=== PATIENT | female | born 1935 | race Two or more races ===

== ENCOUNTER 2017-06-21 14:08 | Emergency (ER) | payer OTHER ==
--- NOTE | 2017-06-21 15:36 | CPEKG ---
Heart Rate: 56 RR Interval: 1071 P-R Interval: 184 QRSD Interval: 78 QT Interval: 424 QTC Interval: 410 P [place]: 33 QRS [place]: -17 T Wave [place]: 7 EKG Severity - ABNORMAL ECG - EKG Impression: SINUS RHYTHM EKG Impression: CONSIDER LEFT VENTRICULAR HYPERTROPHY Electronically Signed By: Maxim Martinez 21-Jun-2017 16:07:34
[2017-06-21] MEDS ORDERED: NS 1,000 ML IV ONE (15:55)
--- NOTE | 2017-06-21 16:04 | EDPHY ---
H & P Time Seen by Provider: 06/21/17 15:17 HPI/ROS: Chief complaint. Cough HPI. 82-year-old female with exposure to influenza in her . She was seen 4 days ago and prescribed Tamiflu 1 pill daily for 10 days. However she has down developed symptoms of cough, achiness, fever for the past 5 days. Apparently no fever since yesterday. This morning she had a coughing episode with some nausea. However no shortness of breath or chest discomfort. Cough is nonproductive. Patient has a history of hypertension and the daughter has noticed that gradually over the past several months the up for number has become more elevated her blood pressure. No headache. No abdominal pain vomiting or diarrhea. Patient is using Tessalon Perles for cough but with minimal relief ROS Constitutional. Fever and chills Eyes. no problems with vision ENT. no sore throat, no nasal drainage Cardiovascular. no chest pain Respiratory. No shortness of breath but cough Abdominal. No abdominal pain but nausea this morning . no problems urinating MS. no calf pain/swelling, no neck/back pain, no joint pain Skin. no rash Lymph. no swollen glands Neuro. no headache, no dizziness, no difficulty walking or with speech Past Medical/Surgical History: Hypertension, diabetes, cholecystectomy Social History: , nonsmoker, no alcohol Smoking Status: Never smoked Physical Exam: General Appearance: Alert well-developed female mild distress vital signs are stable Eyes: Pupils equal and round no pallor or injection. ENT, pharynx without injection. Mucous membranes are moist Respiratory: There are no retractions, lungs are clear to auscultation. Cardiovascular: Regular rate and rhythm. Gastrointestinal: Abdomen is soft and nontender, no masses, bowel sounds normal. Neurological: Awake and alert, sensory and motor exams grossly normal. Skin: Warm and dry, no rashes. Musculoskeletal: Neck is supple nontender. Extremities symmetrical, full range of motion. Psychiatric: Patient is oriented X 3, there is no agitation. Constitutional: Initial Vital Signs Temperature (C) 37 C 06/21/17 14:18 Heart Rate 59 L 06/21/17 14:18 Respiratory Rate 20 06/21/17 14:18 Blood Pressure 174/75 H 06/21/17 14:18 O2 Sat (%) 98 06/21/17 14:18 O2 Delivery Mode Room Air Allergies/Adverse Reactions: htn Allergy (Uncoded 06/21/17 14:16) Home Medications: Medication Instructions Recorded DIOVAN 07/10/10 Metformin HCl 04/29/14 Valsartan 04/29/14 Metoprolol Succinate 06/21/17 Oseltamivir Phosphate [Tamiflu 75 75 mg PO BID #5 cap 06/21/17 mg (*)] Medical Decision Making - Diagnostics EKG Interpretation: EKG interpreted by me shows normal sinus rhythm normal interval. There is left axis deviation. QRS otherwise normal there is no significant ST elevation or depression. No arrhythmia. The rate is 56 Imaging Results: Imaging Impressions Chest X-Ray 06/21/17 15:55 Impression: 1. Stable mild cardiomegaly. 2. Stable mildly hyperexpanded lungs suggestive of underlying mild COPD. 3. Fibrotic streaks suspected at the left base involving the lingula. 4. Soft tissue density right side of the trachea causing deviation of the trachea toward the left. Chest x-ray reviewed by me shows no evidence of pneumonia. There is slight deviation of the trachea to the left from a soft tissue density at the level of the clavicle Procedures: IV normal saline ED Course/Re-evaluation: Re-evaluation 5:15 p.m. Differential Diagnosis: I considered influenza, pneumonia. She has been exposed to influenza and was on prophylaxis but now has what appears to be influenza type illness. There is no evidence for pneumonia. She is otherwise stable. No evidence for sepsis. - Data Points Laboratory Results: Laboratory Results 06/21/17 16:25 06/21/17 16:25 06/21/17 06/21/17 16:25 16:25 WBC 5.60 10^3/uL 10^3/uL (3.80-9.50) RBC 4.22 10^6/uL 10^6/uL (4.18-5.33) Hgb 12.8 g/dL g/dL (12.6-16.3) Hct 36.0 % L % (38.0-47.0) MCV 85.3 fL fL (81.5-99.8) MCH 30.3 pg pg (27.9-34.1) MCHC 35.6 g/dL g/dL (32.4-36.7) RDW 11.9 % % (11.5-15.2) Plt Count 280 10^3/uL 10^3/uL (150-400) MPV 8.8 fL fL (8.7-11.7) Neut % (Auto) 43.0 % % (39.3-74.2) Lymph % (Auto) 49.3 % H % (15.0-45.0) [place] % (Auto) 5.5 % % (4.5-13.0) Eos % (Auto) 1.3 % % (0.6-7.6) Baso % (Auto) 0.7 % % (0.3-1.7) Nucleat RBC Rel Count 0.0 % % (0.0-0.2) Absolute Neuts (auto) 2.41 10^3/uL 10^3/uL (1.70-6.50) Absolute Lymphs (auto) 2.76 10^3/uL 10^3/uL (1.00-3.00) Absolute Monos (auto) 0.31 10^3/uL 10^3/uL (0.30-0.80) Absolute Eos (auto) 0.07 10^3/uL 10^3/uL (0.03-0.40) Absolute Basos (auto) 0.04 10^3/uL 10^3/uL (0.02-0.10) Absolute Nucleated RBC 0.00 10^3/uL 10^3/uL (0-0.01) Immature Gran % 0.2 % % (0.0-1.1) Immature Gran # 0.01 10^3/uL 10^3/uL (0.00-0.10) Sodium 134 mEq/L L mEq/L (135-145) Potassium 4.7 mEq/L mEq/L (3.5-5.2) Chloride 97 mEq/L mEq/L (97-110) Carbon Dioxide 24 mEq/l mEq/l (22-31) Anion Gap 13 mEq/L mEq/L (8-16) BUN 9 mg/dL mg/dL (7-23) Creatinine 0.7 mg/dL mg/dL (0.6-1.0) Estimated GFR > 60 Glucose 102 mg/dL H mg/dL (70-100) Calcium 8.9 mg/dL mg/dL (8.5-10.4) Medications Given: Discontinued Medications Sodium Chloride (Ns) 1,000 mls @ 0 mls/hr IV ONCE ONE; Wide Open PRN Reason: Protocol Stop: 06/21/17 15:56 Last Admin: 06/21/17 16:28 Dose: 1,000 mls Departure - Departure Disposition: Home, Routine, Self-Care Clinical Impression: Influenza Condition: Good Instructions: Influenza (ED) Additional Instructions: Drink plenty of fluids and stay hydrated. Continue regular medications. Increase Tamiflu to 1 pill twice daily for the next 5 days. Return for worsening symptoms. Keep follow-up appointment on June 26 to also have blood pressure rechecked. Referrals: Gayatri Armas MD [Primary Care Provider] - 06/26/17 Prescriptions: Oseltamivir Phosphate [Tamiflu 75 mg (*)] 75 mg PO BID #5 cap
[2017-06-21 16:48] LABS: PLATELET COUNT 280 10^3/uL (150-400)
[2017-06-21 17:17] VITALS: RESP 16
[2017-06-21 17:47] VITALS: BP 170/69; PULSE 57; TEMP 98.6; O2SAT 99
== END 2017-06-21 17:45 | disposition home or self-care (01) ==
DX: J11.1 Influenza due to unidentified influenza virus with other respiratory manifestations (principal); E86.9 Volume depletion, unspecified; I10 Essential (primary) hypertension; E11.9 Type 2 diabetes mellitus without complications; Z79.84 Long term (current) use of oral hypoglycemic drugs

== ENCOUNTER 2018-05-26 17:42 | Observation (INO) | payer OTHER ==
--- NOTE | 2018-05-26 19:09 | EDPHY ---
H & P Time Seen by Provider: 05/26/18 18:57 HPI/ROS: CHIEF COMPLAINT: The cough HISTORY OF PRESENT ILLNESS: The patient is a 83-year-old female who presents emergency department with ongoing cough. Her symptoms started 10 days ago. She initially got got better after few days on Mucinex. However symptoms subsequently worsened. She had increasing productive cough of yellow sputum. She has felt chilled. The not measured fever. She feels mildly short of breath. No leg pain or swelling. Patient received a flu shot this year. REVIEW OF SYSTEMS: 10 systems were reveiwed and are negative with the exception of the elements mentioned in the history of present illness. Past Medical/Surgical History: Includes hypertension, diabetes Past surgical history: Cholecystectomy Social history: Patient does not smoke Smoking Status: Never smoked Physical Exam: GENERAL: No acute distress, alert. HEENT: Eyes normal to inspection, normal pharynx, no signs of dehydration. NECK: Normal, supple. RESPIRATORY: Coarse breath sounds bilaterally at the bases left greater than right. No rales or rhonchi. CVS: Regular rate and rhythm, no rubs, murmurs, or gallops. ABDOMEN: Soft, nontender, nondistended, no organomegaly. BACK: Normal to inspection, no CVA tenderness. SKIN: Normal color, no rash, warm, dry. No pallor. EXTREMITIES: No pedal edema, no calf tenderness, no Homans sign or cords, no joint swelling. NEURO/PSYCH: Alert and oriented, normal mood and affect, normal motor sensory exam. Constitutional: Initial Vital Signs Temperature (C) 36.7 C 05/26/18 17:50 Heart Rate 68 05/26/18 17:50 Respiratory Rate 18 05/26/18 17:50 Blood Pressure 158/60 H 05/26/18 17:50 O2 Sat (%) 97 05/26/18 17:50 O2 Delivery Mode Room Air Allergies/Adverse Reactions: No Known Allergies Allergy (Unverified 05/26/18 17:58) Home Medications: Medication Instructions Recorded DIOVAN 07/10/10 Metformin HCl 04/29/14 Valsartan 04/29/14 Metoprolol Succinate 06/21/17 Medical Decision Making - Diagnostics Imaging Results: Imaging Impressions Chest X-Ray 05/26/18 19:13 Impression: COPD/airways disease. No pneumonia or other acute finding identified. ED Course/Re-evaluation: In the emergency department I discussed possible etiologies with the patient and family. She consented treatment. IV was placed. Laboratory studies, EKG, chest x-ray were ordered. Reviewed the patient's laboratory studies. Her white count was elevated 15, 000. Her chemistry panel is notable for low sodium 124. Her previous sodium was 135. Chloride is low at 94. Potassium is normal. Creatinine is normal. Chest x-ray: Please refer the dictated report. There is noted COPD/airway disease. No pneumonia or other acute abnormality noted. I rechecked the patient. I discussed the results with the patient and family. They were concerned the amount of coughing and fatigue the patient is having from her illness. They also reports that she has no history of low sodium. I discussed the case with Dr. Newman. The patient will be admitted for further evaluation and care. Differential Diagnosis: My differential includes but is not limited to pneumonia, bronchitis, influenza , viral illness, empyema, abscess, sepsis, bacteremia - Data Points Laboratory Results: Laboratory Results 05/26/18 19:25 05/26/18 19:25 05/26/18 05/26/18 05/26/18 19:25 19:25 19:25 WBC 15.92 10^3/uL H 10^3/uL (3.80-9.50) RBC 3.69 10^6/uL L 10^6/uL (4.18-5.33) Hgb 10.8 g/dL L g/dL (12.6-16.3) Hct 30.7 % L % (38.0-47.0) MCV 83.2 fL fL (81.5-99.8) MCH 29.3 pg pg (27.9-34.1) MCHC 35.2 g/dL g/dL (32.4-36.7) RDW 11.4 % L % (11.5-15.2) Plt Count 391 10^3/uL 10^3/uL (150-400) MPV 8.6 fL L fL (8.7-11.7) Neut % (Auto) 67.3 % % (39.3-74.2) Lymph % (Auto) 22.2 % % (15.0-45.0) [place] % (Auto) 6.7 % % (4.5-13.0) Eos % (Auto) 2.6 % % (0.6-7.6) Baso % (Auto) 0.6 % % (0.3-1.7) Nucleat RBC Rel Count 0.0 % % (0.0-0.2) Absolute Neuts (auto) 10.71 10^3/uL H 10^3/uL (1.70-6.50) Absolute Lymphs (auto) 3.54 10^3/uL H 10^3/uL (1.00-3.00) Absolute Monos (auto) 1.06 10^3/uL H 10^3/uL (0.30-0.80) Absolute Eos (auto) 0.42 10^3/uL H 10^3/uL (0.03-0.40) Absolute Basos (auto) 0.09 10^3/uL 10^3/uL (0.02-0.10) Absolute Nucleated RBC 0.00 10^3/uL 10^3/uL (0-0.01) Immature Gran % 0.6 % % (0.0-1.1) Immature Gran # 0.10 10^3/uL 10^3/uL (0.00-0.10) PT 15.0 SEC SEC (12.0-15.0) INR 1.16 (0.83-1.16) APTT 31.1 SEC SEC (23.0-38.0) VBG Lactic Acid Sodium 124 mEq/L L mEq/L (135-145) Potassium 4.0 mEq/L mEq/L (3.5-5.2) Chloride 94 mEq/L L mEq/L (97-110) Carbon Dioxide 22 mEq/l mEq/l (22-31) Anion Gap 8 mEq/L mEq/L (6-14) BUN 9 mg/dL mg/dL (7-23) Creatinine 0.8 mg/dL mg/dL (0.6-1.0) Estimated GFR > 60 Glucose 109 mg/dL H mg/dL (70-100) Calcium 8.2 mg/dL L mg/dL (8.5-10.4) Total Bilirubin 0.5 mg/dL mg/dL (0.1-1.4) Nasal Influenza A PCR Nasal Influenza B PCR 05/26/18 05/26/18 19:25 19:20 WBC RBC Hgb Hct MCV MCH MCHC RDW Plt Count MPV Neut % (Auto) Lymph % (Auto) [place] % (Auto) Eos % (Auto) Baso % (Auto) Nucleat RBC Rel Count Absolute Neuts (auto) Absolute Lymphs (auto) Absolute Monos (auto) Absolute Eos (auto) Absolute Basos (auto) Absolute Nucleated RBC Immature Gran % Immature Gran # PT INR APTT VBG Lactic Acid 1.7 mmol/L mmol/L (0.7-2.1) Sodium Potassium Chloride Carbon Dioxide Anion Gap BUN Creatinine Estimated GFR Glucose Calcium Total Bilirubin Nasal Influenza A PCR NEGATIVE FOR FLU A (NEGATIVE) Nasal Influenza B PCR NEGATIVE FOR FLU B (NEGATIVE) Departure - Departure Disposition: [facility] Inpatient Acute Clinical Impression: Hyponatremia, Bronchitis Condition: Good
[2018-05-26 19:38] LABS: PLATELET COUNT 391 10^3/uL (150-400)
[2018-05-26 19:47] LABS: INR 1.16 (0.83-1.16)
[2018-05-26] MEDS ORDERED: ONDANSETRON DISINTEGRATING 4 MG TAB PO PRN (23:31)
[2018-05-26] MEDS ORDERED: ACETAMINOPHEN 325 MG TAB PO PRN (23:31)
[2018-05-26] MEDS ORDERED: ONDANSETRON 4 MG/2 ML VIAL IVP PRN (23:31)
[2018-05-26] MEDS ORDERED: IBUPROFEN 200 MG TAB PO PRN (23:31)
[2018-05-26] MEDS ORDERED: NS 1,000 ML IV SCH (23:45)
[2018-05-27] MEDS ORDERED: hydrALAZINE 10 MG TAB PO PRN (00:28)
--- NOTE | 2018-05-27 00:28 | PDGENHP ---
History and Physical - Chief Complaint cough - History of Present Illness Source - Patient is primarily Albanian speaking. I am able to complete part of the interview myself. Patient children are at bedside and daughter provides majority of the history and well as translation by preference. HPI - Pleasant 83 yo F with pmhx significant for HTN, GERD, DM II who presents to the ED today with her children for worsening cough. Daughter reports that patient has been sick x 10 days with cough. no known fevers/chills. no nausea/ vomiting/diarrhea. + sick contacts amongst children and friends/family who attended a family gathering recently. Patient has had increasing cough that has increased minimal production yellow sputum. + chills without fever. mild dyspnea with increasing coughing fits. Patient received her flu shot this season. Daughter also notes in the last 24 hours she has been encouraging her mother to increase her oral intake of water as patient has had decreased appetite and generally does not drink enough fluids. History Information - Allergies/Home Medication List Allergies/Adverse Reactions: No Known Allergies Allergy (Unverified 05/26/18 17:58) Home Medications: Acetaminophen [Tylenol 325mg (*)] 650 mg PO Q6 PRN 05/26/18 [Last Taken Unknown] Losartan Potassium [Cozaar 50 mg (*)] 50 mg PO BID 05/26/18 [Last Taken Unknown] Metoprolol Tartrate [Lopressor 50 mg (*)] 75 mg PO BID 05/26/18 [Last Taken Unknown] Pantoprazole Sodium [Protonix 40mg (*)] 40 mg PO DAILY 05/26/18 [Last Taken Unknown] guaiFENesin [Mucinex 600 MG (*)] 600 mg PO BID 05/26/18 [Last Taken Unknown] metFORMIN HCL [Metformin HCl] 850 mg PO BIDMEAL 05/26/18 [Last Taken Unknown] I have personally reviewed and updated: family history, medical history, social history, surgical history - Past Medical History Additional medical history: HTN. GERD with history of gastritis and h.pylori remotely. DM II on metformin and glipizide. hard of hearing wears hearing aids. hx gallstone pancreatitis 2011. osteoporosis. 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 - Surgical History Additional surgical history: cholecystectomy. thyroid FNA - Family History Additional family history: no lung disease - Social History Smoking Status: Never smoked Alcohol Use: None Drug Use: None Additional social history: Patient is and lives alone in her home. Her children visit with her regularly. Review of Systems Review of Systems: ROS: 10pt was reviewed & negative except for what was stated in HPI & below Constitutional: Reports: chills, recent illness. Denies: fever, weakness EENMT: Denies: nose congestion, sore throat Cardiac: Reports: no symptoms Respiratory: Reports: cough, shortness of breath (mild with coughing fit) Gastrointestinal: Reports: no symptoms Genitourinary: Reports: no symptoms Muscolosketal: Reports: no symptoms Skin: Reports: no symptoms Neurological: Reports: no symptoms Physical Exam Physical Exam: Selected Entries 05/26/18 17:50 Blood Pressure Automatic Method Heart Rate 68 Respiratory 18 Rate O2 Sat (%) 97 Temperature (C) 36.7 C Blood Pressure 158/60 H Mean Arterial 92 Pressure (MAP) O2 Delivery Room Air Mode Temperature Oral Source Temp Pulse Resp BP Pulse Ox 37.1 C 77 16 185/73 H 96 05/26/18 22:34 05/26/18 22:34 05/26/18 22:34 05/26/18 22:34 05/26/18 22:34 Constitutional: no apparent distress, appears nourished, not in pain, chronically ill appearing, other (NAD. pleasant frail elderly lady is sitting up in bed. children at bedside. ), No uncomfortable Ears, Nose, Mouth, Throat: moist mucous membranes, hard of hearing, No poor dentition Cardiovascular: regular rate and rhythym, no murmur, rub, or gallop, pulses symmetric bilaterally, No edema Peripheral Pulses: 1+: dorsalis-pedis (R), dorsalis-pedis (L) Respiratory: no respiratory distress, no rales or rhonchi, clear to auscultation , other (occasional cough while at bedside. ), No inspiratory crackles, No respiratory distress Gastrointestinal: normoactive bowel sounds, soft, non-tender abdomen, no palpable masses, No distension Genitourinary: no bladder tenderness, No canas in urethra Skin: warm, normal color, no rashes or abrasions Musculoskeletal: generalized weakness (generalized weakness and deconditioning) Neurologic: sensation intact bilaterally, other (grossly nonfocal. ), No facial droop Psychiatric: interacting appropriately, not anxious, not encephalopathic, thought process linear, No agitated Lab Data & Imaging Review 05/27/18 04:44 05/27/18 04:44 WBC 15.92 10^3/uL (3.80-9.50) H 05/26/18 19:25 RBC 3.69 10^6/uL (4.18-5.33) L 05/26/18 19:25 Hgb 10.8 g/dL (12.6-16.3) L 05/26/18 19:25 Hct 30.7 % (38.0-47.0) L 05/26/18 19:25 MCV 83.2 fL (81.5-99.8) 05/26/18 19:25 MCH 29.3 pg (27.9-34.1) 05/26/18 19:25 MCHC 35.2 g/dL (32.4-36.7) 05/26/18 19:25 RDW 11.4 % (11.5-15.2) L 05/26/18 19:25 Plt Count 391 10^3/uL (150-400) 05/26/18 19:25 MPV 8.6 fL (8.7-11.7) L 05/26/18 19:25 Neut % (Auto) 67.3 % (39.3-74.2) 05/26/18 19:25 Lymph % (Auto) 22.2 % (15.0-45.0) 05/26/18 19:25 [place] % (Auto) 6.7 % (4.5-13.0) 05/26/18 19:25 Eos % (Auto) 2.6 % (0.6-7.6) 05/26/18 19:25 Baso % (Auto) 0.6 % (0.3-1.7) 05/26/18 19:25 Nucleat RBC Rel Count 0.0 % (0.0-0.2) 05/26/18 19:25 Absolute Neuts (auto) 10.71 10^3/uL (1.70-6.50) H 05/26/18 19:25 Absolute Lymphs (auto) 3.54 10^3/uL (1.00-3.00) H 05/26/18 19:25 Absolute Monos (auto) 1.06 10^3/uL (0.30-0.80) H 05/26/18 19:25 Absolute Eos (auto) 0.42 10^3/uL (0.03-0.40) H 05/26/18 19:25 Absolute Basos (auto) 0.09 10^3/uL (0.02-0.10) 05/26/18 19:25 Absolute Nucleated RBC 0.00 10^3/uL (0-0.01) 05/26/18 19:25 Immature Gran % 0.6 % (0.0-1.1) 05/26/18 19:25 Immature Gran # 0.10 10^3/uL (0.00-0.10) 05/26/18 19:25 PT 15.0 SEC (12.0-15.0) 05/26/18 19:25 INR 1.16 (0.83-1.16) 05/26/18 19:25 APTT 31.1 SEC (23.0-38.0) 05/26/18 19:25 VBG Lactic Acid 1.7 mmol/L (0.7-2.1) 05/26/18 19:25 Sodium 124 mEq/L (135-145) L 05/26/18 19:25 Potassium 4.0 mEq/L (3.5-5.2) 05/26/18 19:25 Chloride 94 mEq/L (97-110) L 05/26/18 19:25 Carbon Dioxide 22 mEq/l (22-31) 05/26/18 19:25 Anion Gap 8 mEq/L (6-14) 05/26/18 19:25 BUN 9 mg/dL (7-23) 05/26/18 19:25 Creatinine 0.8 mg/dL (0.6-1.0) 05/26/18 19:25 Estimated GFR > 60 05/26/18 19:25 Glucose 109 mg/dL (70-100) H 05/26/18 19:25 Calcium 8.2 mg/dL (8.5-10.4) L 05/26/18 19:25 Total Bilirubin 0.5 mg/dL (0.1-1.4) 05/26/18 19:25 Nasal Influenza A PCR NEGATIVE FOR FLU A (NEGATIVE) 05/26/18 19:20 Nasal Influenza B PCR NEGATIVE FOR FLU B (NEGATIVE) 05/26/18 19:20 Imaging Review: Chest, PA and Lateral History: Cough, chills, dyspnea, midsternal pain with diabetes Comparison: June 21, 2017, April 29, 2014, September 22, 2010 Findings moderately prominent lung volumes and bronchial wall thickening are chronic or recurrent and suggest underlying COPD/airways disease. Lungs are clear, without focal infiltrate or consolidation. Heart size and pulmonary vascularity are normal. There is no adenopathy or mass lesion. There is no pleural effusion. There is contact degenerative spurring throughout the mid and lower thoracic spine suggestive of DISH. Bones are otherwise unremarkable for age. Right upper quadrant surgical clips are stable present and consistent with remote cholecystectomy. Impression: COPD/airways disease. No pneumonia or other acute finding identified. Dictated By: Marvin Cardenas MD Assessment & Plan Assessment: Javid 83 yo F with pmhx significant for HTN, GERD, DM II who presents to the ED today with her children for worsening cough. Bronchitis (Acute) - family is requesting tylenol with codeine for cough and reports patient has tolerated this previously. she is not requiring oxygen. rapid flu negative. respiratory pcr pending. cxr noting a more chronic respiratory process however symptoms began recently. no wheezing on exam. no previous history of respiratory illness. Hyponatremia (Acute) - likely 2/2 hypovolemia. monitoring sodium and checking urine studies as patient has already received significant bolus in the ED will monitor for steady correction and adding additional IV as appropriate. renal insufficiency - patient eGFR calculates 40s. she is chronically on metformin and glipizide. recommend follow up with patient PCP and consideration to decrease dosing pending repeat bmp with hydration correction. gerd - continue ppi anemia - likely of chronic disease. no evidence of active bleeding. continue to monitor. FEN - fluids as noted above. electrolyte monitoring and replacement prn. ADA diet as tolerated. encourage po hydration. PPX -SCDs. lovenox if patient should stay additional day Dispo - Patient admitted to observation status pending sodium correction. COR -status additional clarification with family in AM needed.
[2018-05-27] MEDS: CODEINE/APAP 12MG/120MG/5 ML UDL PO PRN ×2 (01:59→08:56)
[2018-05-27] MEDS: METOPROLOL TARTRATE 50 MG TAB PO SCH ×2 (02:00→08:42)
[2018-05-27 05:25] LABS: PLATELET COUNT 387 10^3/uL (150-400)
[2018-05-27] MEDS ORDERED: metFORMIN HCL 850 MG TAB PO SCH (08:00)
[2018-05-27] MEDS ORDERED: guaiFENesin 600 MG TAB.ER PO SCH (09:00)
[2018-05-27] MEDS ORDERED: ENOXAPARIN 40 MG/0.4 ML SYR SC SCH (09:00)
[2018-05-27] MEDS ORDERED: LOSARTAN POTASSIUM 50 MG TAB PO SCH (09:00)
[2018-05-27] MEDS ORDERED: PANTOPRAZOLE SODIUM 40 MG TAB PO SCH (09:00)
[2018-05-27] MEDS ORDERED: BENZONATATE 100 MG CAP PO PRN (11:40)
[2018-05-27 15:24] VITALS: BP 126/63
--- NOTE | 2018-05-27 15:39 | ASMTCMCOM ---
CM Note CM Note Notes: Patient is a 83 year old female admitted under observation for ongoing cough x10 days. Medical history includes Hypertension, Diabetes, COPD. Patient is and lives alone, her children visit her often. Patient discussed during medical rounds, she tested positive for mistry virus. CM to follow. D/C Plan: likely independent Date Signed: 05/27/2018 03:39 PM Electronically Signed By:Janell Castrejon
[2018-05-27] MEDS ORDERED: NS 500 ML IV ONE (16:37)
== END 2018-05-27 17:49 | disposition home or self-care (01) ==
LOC: F1N 21:57
PROVIDERS: ADMIT Internal Medicine; ATTEND Internal Medicine
DX: J20.9 Acute bronchitis, unspecified (principal); E87.1 Hypo-osmolality and hyponatremia; D64.9 Anemia, unspecified; I10 Essential (primary) hypertension; E11.9 Type 2 diabetes mellitus without complications; K21.9 Gastro-esophageal reflux disease without esophagitis; Z79.84 Long term (current) use of oral hypoglycemic drugs
CPT/HCPCS: 71046; 96372; 99285; G0378; J1650